=== PATIENT | male | born 1950 | race Caucasian/White ===

== ENCOUNTER 2020-07-12 13:35 | Outpatient (CLI) | payer MEDICARE, OTHER ==
[~2020-07-12 13:35] MED LIST: ASPI-1 PO; ATEN-27 PO; CLOP75TA35 PO; GLIM2TAB6 PO; LISI10TA4 PO; LOSA25TA96 PO; METF-438 PO; NITR0.4T51 SL; ROSU20TA2 PO
== END 2020-07-12 23:59 | disposition home or self-care (01) ==
LOC: CARD DIAG 13:35
PROVIDERS: ATTEND Internal Medicine Cardiovascular Disease
DX: I08.0 Rheumatic disorders of both mitral and aortic valves (principal); I10 Essential (primary) hypertension
CPT/HCPCS: 93306

== ENCOUNTER 2022-05-24 12:05 | Emergency (ER) | payer MEDICARE, OTHER ==
[~2022-05-24] VITALS: Ht 180.3 cm; Wt 131.8 kg
[~2022-05-24 12:05] MED LIST changes: +CLOP75TA34 PO; -CLOP75TA35 PO; +LISI10TA27 PO; -LISI10TA4 PO
--- NOTE | 2022-05-24 15:10 | NUR ---
Facial wounds gently cleaned with warm water.
[2022-05-24] MEDS ORDERED: TETanus/Pertussis (Acell)/Diphther VAC/PF (Tdap-Adult) 0.5ml syringe IMVAC ONE (15:35)
[2022-05-24] MEDS ORDERED: LIDOcaine 1% w/EPI 1:100,000 30ml vial (MDV) SQ ONE (15:50)
[2022-05-24] MEDS ORDERED: LIDOcaine 1.5% w/epinephrine 1:200,000 5ml ampul SQ ONE (15:50)
[2022-05-24 17:00] VITALS: BP 139/84
[2022-05-24] MEDS ORDERED: HYDROcodone/acetaminophen 5mg/325mg tablet PO ONE (17:20)
[2022-05-24] MEDS ORDERED: amox tr/potassium clavulanate 875/125mg TAB PO ONE (17:20)
--- NOTE | 2022-05-24 17:30 | NUR ---
Wounds on face cleaned and dressed with not stick dressings.
[2022-05-24] MEDS ORDERED: AMOX-117 PO (17:38)
[2022-05-24] MEDS ORDERED: HYDR-3965 PO (17:38)
--- NOTE | 2022-05-24 17:53 | NUR ---
Pt given and understands d/c instructions. Ambulatory with a steady gait.
== END 2022-05-24 17:54 | disposition home or self-care (01) ==
LOC: ER 12:06
DX: S02.2XXA Fracture of nasal bones, initial encounter for closed fracture (principal); S01.21XA Laceration without foreign body of nose, initial encounter; S01.112A Laceration without foreign body of left eyelid and periocular area, initial encounter; S01.412A Laceration without foreign body of left cheek and temporomandibular area, initial encounter; I51.9 Heart disease, unspecified; Z79.82 Long term (current) use of aspirin; Z79.84 Long term (current) use of oral hypoglycemic drugs; W18.39XA Other fall on same level, initial encounter; Y93.89 Activity, other specified; Z79.899 Other long term (current) drug therapy; Y92.89 Other specified places as the place of occurrence of the external cause; Y99.8 Other external cause status
CPT/HCPCS: 12015; 70450; 70486; 72125; 90471; 90715; 99284; J7030; A6258; A6449